=== PATIENT | male | born 1965 | race Caucasian/White ===

== ENCOUNTER 2020-01-25 13:45 | Outpatient (CLI) | payer OTHER ==
--- NOTE | 2020-01-27 19:59 | Consultation ---
DATE OF CONSULTATION: 01/25/2020 CONSULTING PHYSICIAN: Hector Laboy MD CHIEF COMPLAINT: Referral for screening colonoscopy. PAST MEDICAL HISTORY: . PAST SURGICAL HISTORY: Back surgery. MEDICATIONS: Truvada, Wellbutrin, Klonopin. FAMILY HISTORY: No family history of GI malignancies. SOCIAL HISTORY: Patient denies any tobacco, alcohol, or drug abuse. ALLERGIES: No known drug allergies. REVIEW OF SYSTEMS: Twelve point review of systems was performed and pertinent positives in HPI. PHYSICAL EXAMINATION: VITAL SIGNS: Temperature 97.2, weight is 230. Vital signs stable. HEENT: Normocephalic, atraumatic. Sclerae anicteric. NECK: Supple. No evidence of obvious lymphadenopathy. CARDIOVASCULAR: Regular rate and rhythm. Plus S1-S2. LUNGS: Clear to auscultation bilaterally. ABDOMEN: Positive bowel sounds. Soft and nontender. No rebound. No guarding. No peritoneal sign. EXTREMITIES: No cyanosis, no clubbing, no edema. ASSESSMENT AND PLAN: Patient is a 54-year-old male who was referred for screening colonoscopy. Patient was informed of the risks and benefits of procedure. The prep was explained to him. We will schedule him as soon as authorization is obtained. Hector Laboy M.D. DR: EDUARDO JOB#: [id number] CC:
== END 2020-01-25 15:45 | disposition home or self-care (01) ==
LOC: PAN 13:45
DX: Z00.00 Encounter for general adult medical examination without abnormal findings (principal); Z79.899 Other long term (current) drug therapy
CPT/HCPCS: G0463